=== PATIENT | female | born 1985 | race Caucasian/White ===

== ENCOUNTER 2016-12-31 12:31 | Emergency (ER) | payer SELFPAY ==
[2016-12-31 14:48] LABS: HEMOGLOBIN 12.3 gm/dl (12.3-15.3); RED BLOOD COUNT 4.81 M/UL (4.00-5.10); WHITE BLOOD COUNT 5.2 K/UL (4.5-11.0)
[2016-12-31 15:06] LABS: BUN/CREATININE RATIO 16 (0-10)
[2017-01-12] MEDS ORDERED: VITAMIN B-1000 MCG/M IM (07:38)
[2017-01-12] MEDS ORDERED: FERROUS GLUCON324 M1 PO (07:39)
[2017-01-12] MEDS ORDERED: PROMETHAZINE HC25 M1 PO (07:39)
[2017-01-12] MEDS ORDERED: ZOLOFT50 MG PO (07:40)
[2017-01-12] MEDS ORDERED: TRAZODONE HCL50 MG PO (07:40)
[2017-01-12] MEDS ORDERED: VITAMIN D350000 UNIT PO (07:41)
[2017-01-12] MEDS ORDERED: NORCO 7.5-3251 EACH PO (10:38)
[2017-01-12] MEDS ORDERED: COLACE 100MG C100 MG PO (10:38)
== END 2016-12-31 17:10 | disposition home or self-care (01) ==
LOC: ER1 12:31
PROVIDERS: Specialist/Technologist Athletic Trainer
DX: K80.20 Calculus of gallbladder without cholecystitis without obstruction (principal); K85.90 Acute pancreatitis without necrosis or infection, unspecified; F32.9 Major depressive disorder, single episode, unspecified; Z79.899 Other long term (current) drug therapy
CPT/HCPCS: 36415; 76705; 80053; 81001; 83605; 83690; 85025; 96361; 96374; 96375; 99284; C9113; J1885; J2405; J7030

== ENCOUNTER → 2017-01-12 | Day surgery (SDC) | payer BC ==
[~2017-01-12] MED LIST: COLACE 100MG C100 MG PO; FERROUS GLUCON324 M1 PO; NORCO 7.5-3251 EACH PO; PROMETHAZINE HC25 M1 PO; TRAZODONE HCL50 MG PO; VITAMIN B-1000 MCG/M IM; VITAMIN D350000 UNIT PO; ZOLOFT50 MG PO
== END | disposition home or self-care (01) ==
LOC: OR 06:38
PROVIDERS: Surgery
PROC: BF03YZZ Plain Radiography of Gallbladder and Bile Ducts using Other Contrast (ICD-10-PCS; 2017-01-12)
PROC: 0FT44ZZ Resection of Gallbladder, Percutaneous Endoscopic Approach (ICD-10-PCS; principal; 2017-01-12 07:45)
DX: K80.12 Calculus of gallbladder with acute and chronic cholecystitis without obstruction (principal); D50.9 Iron deficiency anemia, unspecified; M41.9 Scoliosis, unspecified; G47.9 Sleep disorder, unspecified; E55.9 Vitamin D deficiency, unspecified; G89.29 Other chronic pain; Z88.8 Allergy status to other drugs, medicaments and biological substances; Z79.899 Other long term (current) drug therapy; Z98.51 Tubal ligation status
CPT/HCPCS: 47531; J0690; J1100; J1200; J1885; J2250; J2405; J2710; J3010; J7030; J7120; Q9962